=== PATIENT | male | born 1960 | race Two or more races ===

== ENCOUNTER 2023-09-22 17:14 | Emergency (ER) | payer OTHER ==
[~2023-09-22] VITALS: Ht 180.3 cm; Wt 80.2 kg
[~2023-09-22 17:14] MED LIST: CEPH500C PO; IBUP-1454 PO
[2023-09-22 20:02] VITALS: BP 116/79; PULSE 61; RESP 18; TEMP 98.4; O2SAT 98
== END 2023-09-22 20:38 | disposition home or self-care (01) ==
LOC: ER 17:14
DX: S01.01XD Laceration without foreign body of scalp, subsequent encounter (principal); I25.2 Old myocardial infarction; Z48.02 Encounter for removal of sutures; Z88.2 Allergy status to sulfonamides; Z98.61 Coronary angioplasty status; X58.XXXD Exposure to other specified factors, subsequent encounter